=== PATIENT | male | born 1990 | race Two or more races ===

== ENCOUNTER 2017-02-28 01:35 | Emergency (ER) | payer MEDICAID ==
[~2017-02-28] VITALS: Ht 170.2 cm; Wt 58.5 kg
[2017-02-28 03:42] VITALS: BP 105/72
[2017-02-28] MEDS ORDERED: ONDANSETRON ODT 4 MG TAB PO ONE ×2 (03:45→03:50)
== END 2017-02-28 03:56 | disposition home or self-care (01) ==
LOC: ER 01:35
DX: R11.2 Nausea with vomiting, unspecified (principal); R05 Cough
CPT/HCPCS: 99283; Q0162